=== PATIENT | male | born 1935 | race Caucasian/White ===

== ENCOUNTER 2021-02-16 18:16 | Emergency (ER) | payer MEDICARE, BC ==
[~2021-02-16] VITALS: Ht 172.7 cm; Wt 79.4 kg
[2021-02-16] MEDS ORDERED: POTASSIUM CHL (18:51)
[2021-02-16] MEDS ORDERED: WARF1TAB2 (18:51)
[2021-02-16] MEDS ORDERED: FUROSEMIDE (18:51)
[2021-02-16] MEDS ORDERED: COREG (18:51)
[2021-02-16] MEDS ORDERED: LISINOPRIL (18:51)
[2021-02-16] MEDS ORDERED: SERT50TA14 (18:51)
[2021-02-16] MEDS ORDERED: XARELTO (18:51)
[2021-02-16] MEDS ORDERED: METFORMIN (18:51)
[2021-02-16 19:45] LABS: HEMATOCRIT 36.4 % (36.7-47.1); MEAN CORPUSCULAR HEMOGLOBIN 32.5 uug (23.8-33.4); MEAN CORPUSCULAR VOLUME 94.4 fL (73.0-96.2); PLATELET COUNT (AUTO) 191 K/uL (152-348)
[2021-02-16 19:54] LABS: CARBON DIOXIDE 27 mmol/L (21-32); CHLORIDE 99 mmol/L (98-107); CREATININE 1.1 mg/dL (0.6-1.3); GLUCOSE 115 mg/dL (74-106); POTASSIUM 4.1 mmol/L (3.5-5.1); UREA NITROGEN, BLOOD 14 mg/dL (7-18)
[2021-02-16 19:59] LABS: ALANINE AMINOTRANSFERASE 22 U/L (16-63); ALKALINE PHOSPHATASE 87 U/L (50-136); ASPARTATE AMINOTRANSFERASE 16 U/L (15-37); BILIRUBIN,DIRECT 0.1 mg/dL (0.0-0.2); BILIRUBIN,TOTAL 0.6 mg/dL (0.2-1.0); TOTAL PROTEIN, SERUM 7.3 g/dL (6.4-8.2)
[2021-02-16 20:01] LABS: ACETAMINOPHEN < 2.0 ug/mL (10-30)
--- NOTE | 2021-02-16 22:08 | NUR ---
Dr. Cisneros spoke with poison control
[2021-02-17 01:49] VITALS: BP 137/81
--- NOTE | 2021-02-17 01:49 | NUR ---
Patient discharged to home in stable condition. Written and verbal after care instructions given. Patient verbalizes understanding of instructions. Stressed follow up or return to ER for worsening s/s.
== END 2021-02-17 01:50 | disposition home or self-care (01) ==
LOC: ER 18:21
DX: T45.511A Poisoning by anticoagulants, accidental (unintentional), initial encounter (principal); T44.7X1A Poisoning by beta-adrenoreceptor antagonists, accidental (unintentional), initial encounter; Y92.019 Unspecified place in single-family (private) house as the place of occurrence of the external cause; I48.91 Unspecified atrial fibrillation; Z79.01 Long term (current) use of anticoagulants; Z85.46 Personal history of malignant neoplasm of prostate; Z88.0 Allergy status to penicillin
CPT/HCPCS: 36415; 85025; 85730; 93005; A4663

== ENCOUNTER 2021-06-10 16:46 | Inpatient (IN) | payer MEDICARE, BC ==
[~2021-06-10] VITALS: Ht 170.2 cm; Wt 79.8 kg
[~2021-06-10 16:46] MED LIST: COREG; FUROSEMIDE; LISINOPRIL; METFORMIN; POTASSIUM CHL; SERT50TA14; WARF1TAB2; XARELTO
[2021-06-10 17:20] LABS: HEMATOCRIT 38.6 % (36.7-47.1); MEAN CORPUSCULAR HEMOGLOBIN 31.4 uug (23.8-33.4); MEAN CORPUSCULAR VOLUME 91.3 fL (73.0-96.2); PLATELET COUNT (AUTO) 180 K/uL (152-348)
[2021-06-10 17:41] LABS: ALANINE AMINOTRANSFERASE 21 U/L (16-63); ALKALINE PHOSPHATASE 77 U/L (50-136); ASPARTATE AMINOTRANSFERASE 15 U/L (15-37); BILIRUBIN,DIRECT 0.2 mg/dL (0.0-0.2); BILIRUBIN,TOTAL 1.1 mg/dL (0.2-1.0); CARBON DIOXIDE 25 mmol/L (21-32); CHLORIDE 98 mmol/L (98-107); GLUCOSE 107 mg/dL (74-106); POTASSIUM 4.4 mmol/L (3.5-5.1); TOTAL PROTEIN, SERUM 7.8 g/dL (6.4-8.2); UREA NITROGEN, BLOOD 15 mg/dL (7-18)
[2021-06-10] MEDS ORDERED: IOHEXOL 350 100 ML INFUS..BTL ONE (17:53)
[2021-06-10] MEDS ORDERED: SWABABLE VALVE TRANSFER SET EA MC ONE (17:53)
[2021-06-10] MEDS ORDERED: IV NORMAL SALINE 250 ML IV ONE (17:54)
--- NOTE | 2021-06-10 18:40 | NUR ---
Patient is still in CT scan.
[2021-06-10] MEDS ORDERED: SERT25TA PO (18:49)
[2021-06-10] MEDS ORDERED: SPIR25TA6 PO (18:49)
[2021-06-10] MEDS ORDERED: LISI2.5T14 PO (18:49)
[2021-06-10] MEDS ORDERED: ROSU5TAB PO (18:49)
[2021-06-10] MEDS ORDERED: ACET1TAB23 PO (18:49)
[2021-06-10] MEDS ORDERED: CARV12.52 PO (18:49)
[2021-06-10] MEDS ORDERED: CLOP75TA33 PO (18:49)
[2021-06-10] MEDS ORDERED: LEVO75TA7 PO (18:49)
[2021-06-10] MEDS ORDERED: ASPI81TA31 PO (18:49)
[2021-06-10] MEDS ORDERED: EPLE25TA10 PO (18:49)
--- NOTE | 2021-06-10 18:55 | NUR ---
Patient is resting comfortably on gurney, NAD, denies chest pains@the moment.
--- NOTE | 2021-06-10 19:10 | NUR ---
Pending CT scan results, nursing SBAR was given to CHARLY Cronin. ER registration/admitting staff notified re: plan to admit.
--- NOTE | 2021-06-10 19:12 | NUR ---
Pt awake in bed. Denies chest pain at this time. No SOB. Able to speak in complete sentences.
[2021-06-10] MEDS ORDERED: DILTIAZEM HCL 25 MG IV ONE (20:14)
[2021-06-10] MEDS ORDERED: DILTIAZEM HCL 25 MG IV IV ONE (20:15)
--- NOTE | 2021-06-10 20:23 | NUR ---
Cardizem 10mg IV given. Pt tolerated well. Denies SOB or chest pain at this time.
--- NOTE | 2021-06-10 20:24 | NUR ---
[facility] called for Panel Call. Daniele Ellis division chief.
[2021-06-10] MEDS ORDERED: ASPIRIN 81 MG TAB.CHEW PO ONE (21:00)
--- NOTE | 2021-06-10 21:07 | NUR ---
Called for Tele bed. Room 306, Nurse will be Jaemson PARKS
[2021-06-10] MEDS ORDERED: CARVEDILOL 12.5 MG TABLET PO SCH (21:15)
[2021-06-10] MEDS ORDERED: ACETAMINOPHEN 325 MG TABLET PO PRN (21:15)
[2021-06-10] MEDS ORDERED: MAGNESIUM HYDROXIDE 30 ML LIQUID UDC PO PRN (21:15)
[2021-06-10] MEDS ORDERED: REMEDY ESSENTIAL ZINC PASTE 113 GM TP PRN (21:15)
[2021-06-10] MEDS ORDERED: ONDANSETRON 4 MG/2 ML VIAL IV PRN (21:15)
--- NOTE | 2021-06-10 21:47 | NUR ---
Report given to Jameson PARKS
[2021-06-10 22:00] VITALS: BP 130/73
--- NOTE | 2021-06-10 22:10 | NUR ---
Taken to 3rd floor room 306 in stable condition. Denies chest pain or SOB. Able to make needs known. All extremities WNL. Pt able to follow commands
[2021-06-10] MEDS ORDERED: NITROGLYCERIN 0.4 MG/TAB BOTTLE SL PRN (22:15)
[2021-06-10] MEDS ORDERED: MORPHINE SULFATE 2 MG/1 ML DISP.SYRIN IM PRN (22:15)
[2021-06-10] MEDS: ENOXAPARIN SODIUM 40 MG/0.4 ML DISP.SYRIN SQ SCH (22:36)
--- NOTE | 2021-06-10 22:52 | NUR ---
Admitted patient to tele unit from Er via wheelchair Dx.chest pain r/o ACS.Patient AALox4.Denies chest pain at this time.No s/s of distress noted.On Ra. Iv patent and intact on Right Ac 18 g.Skin intact.Due meds given as ordered. Call light with in reach. Safety measures in place. Will continue to monitor.
[2021-06-11 04:42] VITALS: BP 127/49
[2021-06-11] MEDS: PANTOPRAZOLE SODIUM 40 MG TABLET.DR PO SCH (06:04)
[2021-06-11] MEDS: LEVOTHYROXINE SODIUM 75 MCG TABLET PO SCH (06:04)
[2021-06-11 06:05] LABS: HEMATOCRIT 37.4 % (36.7-47.1); MEAN CORPUSCULAR HEMOGLOBIN 31.4 uug (23.8-33.4); MEAN CORPUSCULAR VOLUME 91.6 fL (73.0-96.2); PLATELET COUNT (AUTO) 156 K/uL (152-348)
[2021-06-11 06:40] LABS: THYROID STIMULATING HORMONE 0.121 mIU/mL (0.358-3.740)
[2021-06-11 06:43] LABS: NEUTROPHILS % (MANUAL) 0 % (42-75)
[2021-06-11 06:45] LABS: CREATININE 1.2 mg/dL (0.6-1.3); MAGNESIUM 2.2 mg/dL (1.8-2.4); PHOSPHOROUS 3.4 mg/dL (2.5-4.9)
[2021-06-11] MEDS: SPIRONOLACTONE 25 MG TABLET PO SCH (08:40)
[2021-06-11] MEDS: SERTRALINE HCL 50 MG TABLET PO SCH (08:40)
[2021-06-11] MEDS: ASPIRIN 81 MG TAB.CHEW PO SCH (08:40)
[2021-06-11] MEDS: CLOPIDOGREL 75 MG TABLET PO SCH (08:42)
[2021-06-11] MEDS: CARVEDILOL 12.5 MG TABLET PO SCH ×2 (08:43→17:20)
[2021-06-11] MEDS: LISINOPRIL 5 MG TABLET PO SCH (08:44)
[2021-06-11] MEDS ORDERED: Medication Not On Formulary EA (Rosuvastatin Calcium (Crestor) 1 TAB) PO SCH (09:00)
[2021-06-11 11:47] VITALS: BP 117/62
[2021-06-11 15:59] VITALS: BP 101/56
--- NOTE | 2021-06-11 19:30 | NUR ---
Received pt resting in bed. AO X 4. On RA saturating at 94%. Bilateral hearing aids. No signs of acute distress. Denies chest pain. IV in R AC intact, saline flushed and heplock. Controlled A fib on tele monitor with 77 bpm. No signs of SOB. Call light within reach. Safety measures initiated.
[2021-06-11] MEDS: ENOXAPARIN SODIUM 40 MG/0.4 ML DISP.SYRIN SQ SCH (20:05)
[2021-06-11 20:07] VITALS: BP 115/53
[2021-06-11] MEDS ORDERED: ATORVASTATIN 10 MG TABLET PO SCH (21:00)
[2021-06-12 00:11] VITALS: BP 133/68
[2021-06-12 04:52] VITALS: BP 139/77
[2021-06-12] MEDS: LEVOTHYROXINE SODIUM 75 MCG TABLET PO SCH (06:18)
[2021-06-12] MEDS: PANTOPRAZOLE SODIUM 40 MG TABLET.DR PO SCH (06:18)
--- NOTE | 2021-06-12 06:35 | NUR ---
Slept throughout the night. No complaints at this time. All needs have been attended and met. Compliant with medication and care. Call lights within reach. Hearing aids placed by bedside. Safety measures maintained. Will endorse to am shift.
[2021-06-12] MEDS: ASPIRIN 81 MG TAB.CHEW PO SCH (09:15)
[2021-06-12] MEDS: CLOPIDOGREL 75 MG TABLET PO SCH (09:16)
[2021-06-12] MEDS: SPIRONOLACTONE 25 MG TABLET PO SCH (09:17)
[2021-06-12] MEDS: LISINOPRIL 5 MG TABLET PO SCH (09:17)
[2021-06-12] MEDS: SERTRALINE HCL 50 MG TABLET PO SCH (09:17)
[2021-06-12] MEDS: CARVEDILOL 12.5 MG TABLET PO SCH (09:17)
[2021-06-12 12:00] VITALS: BP 94/52
--- NOTE | 2021-06-12 13:00 | NUR ---
Discharge instructions given to pt. Follow up with primary doctor and choker setter within 1 week. PT verbalized understanding. IV taken out. Pt is in no acute distress. Pt ambulates with good balance.
== END 2021-06-12 13:30 | disposition home or self-care (01) | DRG 309 ==
LOC: ER 16:49 → MEDSURG3 21:57 → TELE3 22:10
PROVIDERS: ADMIT Family Medicine; ATTEND Family Medicine
DX: I48.20 Chronic atrial fibrillation, unspecified (principal); E87.1 Hypo-osmolality and hyponatremia; E86.1 Hypovolemia; R07.9 Chest pain, unspecified; I25.10 Atherosclerotic heart disease of native coronary artery without angina pectoris; Z88.0 Allergy status to penicillin; R73.9 Hyperglycemia, unspecified; Z85.46 Personal history of malignant neoplasm of prostate; Z95.5 Presence of coronary angioplasty implant and graft; Z95.818 Presence of other cardiac implants and grafts; Z79.82 Long term (current) use of aspirin; R94.6 Abnormal results of thyroid function studies; Z20.822 Contact with and (suspected) exposure to COVID-19; I34.1 Nonrheumatic mitral (valve) prolapse
CPT/HCPCS: 36415; 70030-TC; 71045; 71275; 83735; 84100; 84443; 84484; 85025; 85730; 93005; 93307; A4663; G0378; J1650; J3490; Q9967

== ENCOUNTER 2022-09-18 14:40 | Inpatient (IN) | payer MEDICARE, BC ==
[~2022-09-18] VITALS: Ht 175.3 cm; Wt 80.7 kg
[~2022-09-18 14:40] MED LIST changes: +ASPI81TA31 PO; +CARV12.52 PO; +CLOP75TA33 PO; -COREG; -FUROSEMIDE; +LEVO75TA7 PO; +LISI2.5T14 PO; -LISINOPRIL; -METFORMIN; -POTASSIUM CHL; +ROSU5TAB PO; +SERT25TA PO; -SERT50TA14; +SPIR25TA6 PO; -WARF1TAB2; -XARELTO
[2022-09-18] MEDS ORDERED: CEFTRIAXONE 1 G in IV DEXTROSE 5% 50 ML IV ONE (16:00)
[2022-09-18] MEDS ORDERED: AZITHROMYCIN 250 MG TABLET PO ONE (16:00)
[2022-09-18] MEDS ORDERED: AZITHROMYCIN 250 MG TABLET ONE (16:21)
[2022-09-18] MEDS ORDERED: CEFTRIAXONE /D5W 50ML IVPB **ER PYXIS IV ONE (16:21)
[2022-09-18 16:26] LABS: BASOPHILS % (AUTO) 0.7 % (0.0-2.0); EOSINOPHILS # (AUTO) 0.1 K/uL (0.0-0.7); EOSINOPHILS % (AUTO) 2.5 % (0.0-7.0); LYMPHOCYTES # (AUTO) 0.7 K/uL (0.8-4.8); MEAN CORPUSCULAR HEMOGLOBIN 31.8 uug (23.8-33.4); MEAN CORPUSCULAR HGB CONC 33 g/dL (32.5-36.3); MEAN CORPUSCULAR VOLUME 95.4 fL (73.0-96.2); MONOCYTES # (AUTO) 0.6 K/uL (0.1-1.30); MONOCYTES % (AUTO) 10.6 % (0.0-11.0); NEUTROPHILS # (AUTO) 4.2 K/uL (1.8-8.9); NEUTROPHILS % (AUTO) 73.2 % (38.5-71.5); PLATELET COUNT (AUTO) 190 K/uL (152-348); RED BLOOD CELL COUNT(AUTO) 3.77 MIL/uL (4.06-5.63); RED CELL DISTRIBUTION WIDTH 13.8 % (12.1-16.2); WHITE BLOOD COUNT (AUTO) 5.8 K/uL (3.6-10.2)
[2022-09-18 16:33] LABS: DIFFERENTIAL COMMENT 1
[2022-09-18 16:39] LABS: *BILIRUBIN,URIN NEGATIVE (NEGATIVE); *BLOOD, URINE NEGATIVE (NEGATIVE); *CLARITY,URINE CLEAR (CLEAR); *COLOR,URINE YELLOW (YELLOW); *KETONES,URINE NEGATIVE (NEGATIVE); *PROTEIN,URINE NEGATIVE (NEGATIVE); *UROBILINOGEN,URINE 0.2 E.U./dl (NORMAL); LEUKOCYTE ESTERASE ,URINE NEGATIVE (NEGATIVE); NITRITE, URINE NEGATIVE (NEGATIVE); UGLUCOSE NEGATIVE (NEGATIVE)
[2022-09-18 16:47] LABS: CARBON DIOXIDE 28 mmol/L (21-32); CHLORIDE 99 mmol/L (98-107); GLUCOSE 105 mg/dL (74-106); POTASSIUM 4.4 mmol/L (3.5-5.1); SODIUM SERUM 133 mmol/L (136-145); UREA NITROGEN, BLOOD 16 mg/dL (7-18)
[2022-09-18 16:52] LABS: ALANINE AMINOTRANSFERASE 22 U/L (16-63); ALBUMIN 3.9 g/dL (3.4-5.0); ALKALINE PHOSPHATASE 65 U/L (50-136); ASPARTATE AMINOTRANSFERASE 16 U/L (15-37); BILIRUBIN,DIRECT 0.1 mg/dL (0.0-0.2); BILIRUBIN,TOTAL 0.6 mg/dL (0.2-1.0); NT-PRO BNP 862 pg/mL (0-125); TOTAL PROTEIN, SERUM 7.5 g/dL (6.4-8.2)
[2022-09-18] MEDS ORDERED: NITROGLYCERIN OINT 1 GM PACKET TP ONE ×2 (17:45→18:02)
[2022-09-18] MEDS ORDERED: hydrALAZINE HCL 20 MG/1 ML VIAL IV ONE (17:45)
[2022-09-18] MEDS ORDERED: hydrALAZINE HCL 20 MG/1 ML VIAL ONE (18:02)
[2022-09-18] MEDS ORDERED: TEMAZEPAM 15 MG CAPSULE PO PRN (19:00)
[2022-09-18] MEDS ORDERED: ACETAMINOPHEN 325 MG TABLET PO PRN (19:00)
[2022-09-18] MEDS ORDERED: HYDROCODONE/APAP 5-325MG TABLET PO PRN (19:00)
[2022-09-18] MEDS ORDERED: ONDANSETRON 4 MG/2 ML VIAL IV PRN (19:00)
[2022-09-18] MEDS ORDERED: CARVEDILOL 3.125 MG TABLET PO ONE (21:00)
[2022-09-18 22:30] VITALS: BP 123/77; TEMP 97.9; O2SAT 94
[2022-09-18] MEDS: CARVEDILOL 12.5 MG TABLET PO SCH (22:51)
[2022-09-19 04:48] VITALS: BP 105/66; TEMP 97.7; O2SAT 94
[2022-09-19] MEDS: LEVOTHYROXINE SODIUM 75 MCG TABLET PO SCH (06:03)
[2022-09-19] MEDS: PANTOPRAZOLE SODIUM 40 MG TABLET.DR PO SCH (06:03)
[2022-09-19 06:38] LABS: BASOPHILS % (AUTO) 0.4 % (0.0-2.0); EOSINOPHILS # (AUTO) 0.1 K/uL (0.0-0.7); EOSINOPHILS % (AUTO) 1.8 % (0.0-7.0); HEMATOCRIT 32.8 % (36.7-47.1); HEMOGLOBIN 11.4 g/dL (12.5-16.3); LYMPHOCYTES # (AUTO) 0.7 K/uL (0.8-4.8); LYMPHOCYTES % (AUTO) 13.7 % (20.5-51.5); MEAN CORPUSCULAR HEMOGLOBIN 32.4 uug (23.8-33.4); MEAN CORPUSCULAR HGB CONC 35 g/dL (32.5-36.3); MEAN CORPUSCULAR VOLUME 93.8 fL (73.0-96.2); MONOCYTES # (AUTO) 0.5 K/uL (0.1-1.30); MONOCYTES % (AUTO) 8.9 % (0.0-11.0); NEUTROPHILS % (AUTO) 75.2 % (38.5-71.5); PLATELET COUNT (AUTO) 179 K/uL (152-348); RED CELL DISTRIBUTION WIDTH 13.7 % (12.1-16.2); WHITE BLOOD COUNT (AUTO) 5.4 K/uL (3.6-10.2)
[2022-09-19 06:51] LABS: ALANINE AMINOTRANSFERASE 15 U/L (16-63); ALBUMIN 3.5 g/dL (3.4-5.0); ALKALINE PHOSPHATASE 58 U/L (50-136); ASPARTATE AMINOTRANSFERASE 12 U/L (15-37); BILIRUBIN,TOTAL 0.7 mg/dL (0.2-1.0); CALCIUM 8.4 mg/dL (8.5-10.1); CARBON DIOXIDE 25 mmol/L (21-32); CHLORIDE 98 mmol/L (98-107); CHOLESTEROL 127 mg/dL (<200); GLUCOSE 100 mg/dL (74-106); HDL CHOLESTEROL 58 mg/dL (40-60); MAGNESIUM 1.8 mg/dL (1.8-2.4); PHOSPHOROUS 3.9 mg/dL (2.5-4.9); POTASSIUM 4.1 mmol/L (3.5-5.1); SODIUM SERUM 132 mmol/L (136-145); TOTAL PROTEIN, SERUM 6.8 g/dL (6.4-8.2); TRIGLYCERIDES 43 MG/DL (30-150); UREA NITROGEN, BLOOD 14 mg/dL (7-18)
[2022-09-19 06:54] LABS: DIFFERENTIAL COMMENT 1
[2022-09-19 09:00] VITALS: BP_SYST 115; BP_SYST 116; BP_SYST 119; BP_DIAS 61; BP_DIAS 64; BP_DIAS 70
[2022-09-19] MEDS ORDERED: Medication Not On Formulary EA (Sertraline Hcl (Zoloft) 1 TAB) PO SCH (09:00)
[2022-09-19] MEDS: SERTRALINE HCL 50 MG TABLET PO SCH (09:12)
[2022-09-19] MEDS: CLOPIDOGREL 75 MG TABLET PO SCH (09:12)
[2022-09-19] MEDS: SPIRONOLACTONE 25 MG TABLET PO SCH (09:12)
[2022-09-19] MEDS: ASPIRIN 81 MG TAB.CHEW PO SCH (09:13)
[2022-09-19] MEDS: LISINOPRIL 5 MG TABLET PO SCH (09:15)
[2022-09-19] MEDS: CARVEDILOL 12.5 MG TABLET PO SCH ×2 (09:16→16:45)
[2022-09-19 11:13] VITALS: BP 116/54; TEMP 97.5; O2SAT 95
[2022-09-19 14:59] VITALS: BP 105/56; TEMP 97.5; O2SAT 95
[2022-09-19 20:00] VITALS: BP 94/47; TEMP 97.7; O2SAT 97
[2022-09-19 23:32] VITALS: BP 106/73; TEMP 97.7; O2SAT 94
[2022-09-20 04:00] VITALS: BP 106/59; TEMP 98.5; O2SAT 95
[2022-09-20] MEDS: LEVOTHYROXINE SODIUM 75 MCG TABLET PO SCH (06:15)
[2022-09-20] MEDS: PANTOPRAZOLE SODIUM 40 MG TABLET.DR PO SCH (06:15)
[2022-09-20 06:45] LABS: BASOPHILS % (AUTO) 0.5 % (0.0-2.0); EOSINOPHILS # (AUTO) 0.2 K/uL (0.0-0.7); EOSINOPHILS % (AUTO) 3.5 % (0.0-7.0); HEMATOCRIT 35.5 % (36.7-47.1); HEMOGLOBIN 12.1 g/dL (12.5-16.3); LYMPHOCYTES # (AUTO) 0.9 K/uL (0.8-4.8); LYMPHOCYTES % (AUTO) 16.2 % (20.5-51.5); MEAN CORPUSCULAR HGB CONC 34 g/dL (32.5-36.3); MEAN CORPUSCULAR VOLUME 93.7 fL (73.0-96.2); MONOCYTES # (AUTO) 0.6 K/uL (0.1-1.30); MONOCYTES % (AUTO) 10.4 % (0.0-11.0); NEUTROPHILS # (AUTO) 4.1 K/uL (1.8-8.9); NEUTROPHILS % (AUTO) 69.4 % (38.5-71.5); PLATELET COUNT (AUTO) 205 K/uL (152-348); RED BLOOD CELL COUNT(AUTO) 3.79 MIL/uL (4.06-5.63); RED CELL DISTRIBUTION WIDTH 14.1 % (12.1-16.2); WHITE BLOOD COUNT (AUTO) 5.9 K/uL (3.6-10.2)
[2022-09-20 06:57] LABS: DIFFERENTIAL COMMENT 1
[2022-09-20 07:00] LABS: CALCIUM 8.9 mg/dL (8.5-10.1); CARBON DIOXIDE 25 mmol/L (21-32); CHLORIDE 97 mmol/L (98-107); GLUCOSE 96 mg/dL (74-106); MAGNESIUM 1.9 mg/dL (1.8-2.4); PHOSPHOROUS 3.3 mg/dL (2.5-4.9); POTASSIUM 4.2 mmol/L (3.5-5.1); SODIUM SERUM 132 mmol/L (136-145); UREA NITROGEN, BLOOD 16 mg/dL (7-18)
[2022-09-20 08:00] VITALS: BP 127/66; TEMP 97.9; O2SAT 97
[2022-09-20] MEDS: LISINOPRIL 5 MG TABLET PO SCH (09:09)
[2022-09-20] MEDS: CLOPIDOGREL 75 MG TABLET PO SCH (09:10)
[2022-09-20] MEDS: SPIRONOLACTONE 25 MG TABLET PO SCH (09:10)
[2022-09-20] MEDS: CARVEDILOL 12.5 MG TABLET PO SCH ×2 (09:10→17:10)
[2022-09-20] MEDS: ASPIRIN 81 MG TAB.CHEW PO SCH (09:10)
[2022-09-20] MEDS: SERTRALINE HCL 50 MG TABLET PO SCH (09:12)
[2022-09-20 11:44] VITALS: BP 117/57; TEMP 98.4; O2SAT 95
[2022-09-20 16:27] VITALS: BP 125/72; TEMP 97.4; O2SAT 96
[2022-09-20 20:00] VITALS: BP 142/80; TEMP 97.9; O2SAT 96
[2022-09-21] MEDS: LEVOTHYROXINE SODIUM 75 MCG TABLET PO SCH (07:19)
[2022-09-21] MEDS: PANTOPRAZOLE SODIUM 40 MG TABLET.DR PO SCH (07:19)
[2022-09-21] MEDS: SERTRALINE HCL 50 MG TABLET PO SCH (08:53)
[2022-09-21] MEDS: CLOPIDOGREL 75 MG TABLET PO SCH (08:53)
[2022-09-21] MEDS: LISINOPRIL 5 MG TABLET PO SCH (08:55)
[2022-09-21] MEDS: CARVEDILOL 12.5 MG TABLET PO SCH (08:55)
[2022-09-21] MEDS: ASPIRIN 81 MG TAB.CHEW PO SCH (08:55)
[2022-09-21] MEDS: SPIRONOLACTONE 25 MG TABLET PO SCH (08:56)
[2022-09-21 11:49] VITALS: BP 132/65; TEMP 98; O2SAT 97
== END 2022-09-21 14:10 | disposition home or self-care (01) | DRG 305 ==
LOC: ER 14:40 → TELE3 21:46 → MEDSURG3 09-20 18:25
PROVIDERS: ADMIT Internal Medicine; ATTEND Student in an Organized Health Care Education/Training Program
DX: I16.9 Hypertensive crisis, unspecified (principal); I48.20 Chronic atrial fibrillation, unspecified; R42 Dizziness and giddiness; Z79.01 Long term (current) use of anticoagulants; R53.1 Weakness; E03.9 Hypothyroidism, unspecified; E66.9 Obesity, unspecified; E78.5 Hyperlipidemia, unspecified; Z79.82 Long term (current) use of aspirin; Z85.46 Personal history of malignant neoplasm of prostate; Z87.891 Personal history of nicotine dependence; Z88.0 Allergy status to penicillin; Z95.1 Presence of aortocoronary bypass graft; Z95.5 Presence of coronary angioplasty implant and graft; Z95.818 Presence of other cardiac implants and grafts; I25.10 Atherosclerotic heart disease of native coronary artery without angina pectoris; I11.0 Hypertensive heart disease with heart failure; I50.9 Heart failure, unspecified; Z68.26 Body mass index [BMI] 26.0-26.9, adult; Z79.02 Long term (current) use of antithrombotics/antiplatelets; I34.1 Nonrheumatic mitral (valve) prolapse
CPT/HCPCS: 36415; 70450; 71045; 83605; 83735; 84100; 84443; 84484; 85025; 85730; 87040; 93005; 93307; 93880; G0378; J0360; J0696; Q0144

== ENCOUNTER 2022-11-19 03:24 | Inpatient (IN) | payer MEDICARE, BC ==
[~2022-11-19] VITALS: Ht 182.9 cm; Wt 81.6 kg
[2022-11-19] MEDS ORDERED: METOPROLOL TARTRATE 5 MG/5 ML VIAL IVP ONE ×2 (04:00→04:19)
[2022-11-19 04:08] LABS: BASOPHILS % (AUTO) 0.6 % (0.0-2.0); EOSINOPHILS # (AUTO) 0.2 K/uL (0.0-0.7); EOSINOPHILS % (AUTO) 3.3 % (0.0-7.0); HEMATOCRIT 36.1 % (36.7-47.1); HEMOGLOBIN 12.5 g/dL (12.5-16.3); LYMPHOCYTES # (AUTO) 0.7 K/uL (0.8-4.8); MEAN CORPUSCULAR HEMOGLOBIN 32.5 uug (23.8-33.4); MEAN CORPUSCULAR HGB CONC 35 g/dL (32.5-36.3); MEAN CORPUSCULAR VOLUME 93.8 fL (73.0-96.2); MONOCYTES # (AUTO) 0.6 K/uL (0.1-1.30); MONOCYTES % (AUTO) 10.9 % (0.0-11.0); NEUTROPHILS % (AUTO) 73.2 % (38.5-71.5); PLATELET COUNT (AUTO) 179 K/uL (152-348); RED BLOOD CELL COUNT(AUTO) 3.85 MIL/uL (4.06-5.63); RED CELL DISTRIBUTION WIDTH 14.1 % (12.1-16.2); WHITE BLOOD COUNT (AUTO) 5.5 K/uL (3.6-10.2)
[2022-11-19 04:13] LABS: DIFFERENTIAL COMMENT 1
[2022-11-19 04:22] LABS: CALCIUM 9.4 mg/dL (8.5-10.1); CARBON DIOXIDE 25 mmol/L (21-32); CHLORIDE 96 mmol/L (98-107); CREATININE 1.1 mg/dL (0.6-1.3); GLUCOSE 152 mg/dL (74-106); SODIUM SERUM 131 mmol/L (136-145); UREA NITROGEN, BLOOD 16 mg/dL (7-18)
[2022-11-19] MEDS ORDERED: IV NORMAL SALINE 500 ML BAG IV ONE (04:30)
[2022-11-19 04:35] LABS: ALANINE AMINOTRANSFERASE 20 U/L (16-63); ALBUMIN 3.7 g/dL (3.4-5.0); ALKALINE PHOSPHATASE 60 U/L (50-136); ASPARTATE AMINOTRANSFERASE 12 U/L (15-37); BILIRUBIN,DIRECT 0.2 mg/dL (0.0-0.2); BILIRUBIN,TOTAL 0.4 mg/dL (0.2-1.0); NT-PRO BNP 289 pg/mL (0-125); TOTAL PROTEIN, SERUM 7.3 g/dL (6.4-8.2)
[2022-11-19] MEDS ORDERED: IOHEXOL 350 100 ML INFUS..BTL ONE (04:52)
[2022-11-19] MEDS ORDERED: IV NORMAL SALINE 250 ML IV ONE (04:53)
[2022-11-19] MEDS ORDERED: FUROSEMIDE 40 MG/4 ML VIAL IV ONE (14:00)
[2022-11-19] MEDS ORDERED: NITROGLYCERIN OINT 1 GM PACKET TP ONE ×2 (14:00→15:11)
[2022-11-19] MEDS ORDERED: FUROSEMIDE 20 MG/2 ML VIAL ONE (15:10)
[2022-11-19] MEDS ORDERED: MAGNESIUM HYDROXIDE 30 ML LIQUID UDC PO PRN (17:15)
[2022-11-19] MEDS ORDERED: NITROGLYCERIN 0.4 MG/TAB BOTTLE SL PRN (17:15)
[2022-11-19] MEDS ORDERED: ACETAMINOPHEN 325 MG TABLET PO PRN (17:15)
[2022-11-19] MEDS ORDERED: REMEDY ESSENTIAL ZINC PASTE 113 GM TP PRN (17:15)
[2022-11-19] MEDS ORDERED: ONDANSETRON 4 MG/2 ML VIAL IV PRN (17:15)
[2022-11-19 18:00] VITALS: BP 130/60; TEMP 97.5; O2SAT 96
[2022-11-19] MEDS: ATORVASTATIN 10 MG TABLET PO SCH (20:50)
[2022-11-19 20:52] VITALS: BP 113/72; TEMP 97.8; O2SAT 100
[2022-11-20 06:14] VITALS: BP 126/68; TEMP 99; O2SAT 99
[2022-11-20 06:31] LABS: BASOPHILS % (AUTO) 0.3 % (0.0-2.0); EOSINOPHILS # (AUTO) 0.2 K/uL (0.0-0.7); EOSINOPHILS % (AUTO) 3.8 % (0.0-7.0); HEMATOCRIT 36.5 % (36.7-47.1); HEMOGLOBIN 12.7 g/dL (12.5-16.3); LYMPHOCYTES # (AUTO) 0.9 K/uL (0.8-4.8); LYMPHOCYTES % (AUTO) 15.6 % (20.5-51.5); MEAN CORPUSCULAR HEMOGLOBIN 32.7 uug (23.8-33.4); MEAN CORPUSCULAR HGB CONC 35 g/dL (32.5-36.3); MEAN CORPUSCULAR VOLUME 93.8 fL (73.0-96.2); MONOCYTES # (AUTO) 0.6 K/uL (0.1-1.30); MONOCYTES % (AUTO) 10.9 % (0.0-11.0); NEUTROPHILS # (AUTO) 3.9 K/uL (1.8-8.9); NEUTROPHILS % (AUTO) 69.4 % (38.5-71.5); PLATELET COUNT (AUTO) 182 K/uL (152-348); RED BLOOD CELL COUNT(AUTO) 3.89 MIL/uL (4.06-5.63); RED CELL DISTRIBUTION WIDTH 14.2 % (12.1-16.2); WHITE BLOOD COUNT (AUTO) 5.7 K/uL (3.6-10.2)
[2022-11-20 06:40] LABS: DIFFERENTIAL COMMENT 1
[2022-11-20 06:47] LABS: CALCIUM 9.5 mg/dL (8.5-10.1); CARBON DIOXIDE 26 mmol/L (21-32); CHLORIDE 102 mmol/L (98-107); CREATININE 1.3 mg/dL (0.6-1.3); GLUCOSE 102 mg/dL (74-106); PHOSPHOROUS 3.9 mg/dL (2.5-4.9); UREA NITROGEN, BLOOD 16 mg/dL (7-18)
[2022-11-20 07:31] LABS: SODIUM SERUM 135 mmol/L (136-145)
[2022-11-20] MEDS: ASPIRIN 81 MG TAB.CHEW PO SCH (08:26)
[2022-11-20] MEDS: CLOPIDOGREL 75 MG TABLET PO SCH (08:26)
[2022-11-20] MEDS: SERTRALINE HCL 50 MG TABLET PO SCH (08:27)
[2022-11-20] MEDS: SPIRONOLACTONE 25 MG TABLET PO SCH (08:27)
[2022-11-20] MEDS: LISINOPRIL 5 MG TABLET PO SCH (08:29)
[2022-11-20] MEDS ORDERED: Medication Not On Formulary EA (Rosuvastatin Calcium (Crestor) 1 TAB) PO SCH (09:00)
[2022-11-20] MEDS ORDERED: CARVEDILOL 12.5 MG TABLET PO SCH (09:00)
[2022-11-20] MEDS ORDERED: Medication Not On Formulary EA (Sertraline Hcl (Zoloft) 1 TAB) PO SCH (09:00)
[2022-11-20] MEDS ORDERED: LEVOTHYROXINE SODIUM 75 MCG TABLET PO SCH (09:00)
[2022-11-20] MEDS ORDERED: FUROSEMIDE 40 MG/4 ML VIAL IV ONE (09:30)
[2022-11-20 17:51] VITALS: BP 128/62; TEMP 98.2; O2SAT 100
[2022-11-20 20:00] VITALS: BP 109/60; TEMP 98.3; O2SAT 100
[2022-11-20] MEDS: ATORVASTATIN 10 MG TABLET PO SCH (21:14)
[2022-11-21] VITALS: BP 115/79; TEMP 98; O2SAT 97
[2022-11-21] MEDS: BENZONATATE 100 MG CAPSULE PO SCH ×3 (01:08→13:35)
[2022-11-21 04:00] VITALS: BP 113/59; TEMP 97.9; O2SAT 98
[2022-11-21 07:21] LABS: BASOPHILS % (AUTO) 0.6 % (0.0-2.0); EOSINOPHILS # (AUTO) 0.1 K/uL (0.0-0.7); EOSINOPHILS % (AUTO) 1.8 % (0.0-7.0); HEMATOCRIT 38.9 % (36.7-47.1); HEMOGLOBIN 13.4 g/dL (12.5-16.3); LYMPHOCYTES # (AUTO) 0.5 K/uL (0.8-4.8); LYMPHOCYTES % (AUTO) 8.6 % (20.5-51.5); MEAN CORPUSCULAR HEMOGLOBIN 32.6 uug (23.8-33.4); MEAN CORPUSCULAR HGB CONC 35 g/dL (32.5-36.3); MEAN CORPUSCULAR VOLUME 94.2 fL (73.0-96.2); MONOCYTES # (AUTO) 0.8 K/uL (0.1-1.30); MONOCYTES % (AUTO) 12.4 % (0.0-11.0); NEUTROPHILS # (AUTO) 4.9 K/uL (1.8-8.9); NEUTROPHILS % (AUTO) 76.6 % (38.5-71.5); PLATELET COUNT (AUTO) 176 K/uL (152-348); RED BLOOD CELL COUNT(AUTO) 4.13 MIL/uL (4.06-5.63); RED CELL DISTRIBUTION WIDTH 14.1 % (12.1-16.2); WHITE BLOOD COUNT (AUTO) 6.3 K/uL (3.6-10.2)
[2022-11-21 07:24] LABS: DIFFERENTIAL COMMENT 1
[2022-11-21 07:50] LABS: CALCIUM 9.5 mg/dL (8.5-10.1); CARBON DIOXIDE 27 mmol/L (21-32); CHLORIDE 97 mmol/L (98-107); CREATININE 1.3 mg/dL (0.6-1.3); GLUCOSE 109 mg/dL (74-106); POTASSIUM 3.8 mmol/L (3.5-5.1); SODIUM SERUM 132 mmol/L (136-145); UREA NITROGEN, BLOOD 22 mg/dL (7-18)
[2022-11-21] MEDS: ASPIRIN 81 MG TAB.CHEW PO SCH (08:27)
[2022-11-21] MEDS: SPIRONOLACTONE 25 MG TABLET PO SCH (08:27)
[2022-11-21] MEDS: LISINOPRIL 5 MG TABLET PO SCH (08:27)
[2022-11-21] MEDS: CLOPIDOGREL 75 MG TABLET PO SCH (08:27)
[2022-11-21] MEDS: SERTRALINE HCL 50 MG TABLET PO SCH (08:28)
[2022-11-21] MEDS ORDERED: METOPROLOL TARTRATE 50 MG TABLET PO SCH (09:00)
[2022-11-21 11:33] VITALS: BP 135/73; TEMP 98.5; O2SAT 96
[2022-11-21] MEDS ORDERED: METO50TA16 PO (12:33)
[2022-11-21 14:43] VITALS: BP 100/56; TEMP 98; O2SAT 95
== END 2022-11-21 16:30 | disposition home or self-care (01) | DRG 291 ==
LOC: ER 03:27 → TELE3 17:05
PROVIDERS: ADMIT Internal Medicine; ATTEND Nurse Practitioner Family
DX: I11.0 Hypertensive heart disease with heart failure (principal); I50.33 Acute on chronic diastolic (congestive) heart failure; I48.20 Chronic atrial fibrillation, unspecified; N17.9 Acute kidney failure, unspecified; I48.91 Unspecified atrial fibrillation; E78.5 Hyperlipidemia, unspecified; E03.9 Hypothyroidism, unspecified; Z79.82 Long term (current) use of aspirin; Z85.46 Personal history of malignant neoplasm of prostate; Z88.0 Allergy status to penicillin; Z79.899 Other long term (current) drug therapy; F32.9 Major depressive disorder, single episode, unspecified; K74.60 Unspecified cirrhosis of liver; R53.1 Weakness; I25.119 Atherosclerotic heart disease of native coronary artery with unspecified angina pectoris; Z95.818 Presence of other cardiac implants and grafts
CPT/HCPCS: 36415; 71045; 71275; 83735; 84100; 84484; 85025; 93005; 93307; G0378; J1940; J3490; Q9967

== ENCOUNTER 2022-11-26 09:25 | Inpatient (IN) | payer MEDICARE, BC ==
[~2022-11-26] VITALS: Ht 172.7 cm; Wt 77.6 kg
[~2022-11-26 09:25] MED LIST changes: -CARV12.52 PO; +METO50TA16 PO
[2022-11-26] MEDS ORDERED: ONDANSETRON 4 MG/2 ML VIAL IV ONE (10:00)
[2022-11-26 10:38] LABS: EOSINOPHILS # (AUTO) 0.1 K/uL (0.0-0.7); EOSINOPHILS % (AUTO) 2.3 % (0.0-7.0); HEMATOCRIT 35.7 % (36.7-47.1); HEMOGLOBIN 12.2 g/dL (12.5-16.3); LYMPHOCYTES # (AUTO) 0.3 K/uL (0.8-4.8); LYMPHOCYTES % (AUTO) 6.2 % (20.5-51.5); MEAN CORPUSCULAR HGB CONC 34 g/dL (32.5-36.3); MEAN CORPUSCULAR VOLUME 93.2 fL (73.0-96.2); MONOCYTES # (AUTO) 0.1 K/uL (0.1-1.30); MONOCYTES % (AUTO) 2.6 % (0.0-11.0); NEUTROPHILS # (AUTO) 4.1 K/uL (1.8-8.9); NEUTROPHILS % (AUTO) 87.9 % (38.5-71.5); PLATELET COUNT (AUTO) 181 K/uL (152-348); RED BLOOD CELL COUNT(AUTO) 3.83 MIL/uL (4.06-5.63); RED CELL DISTRIBUTION WIDTH 13.7 % (12.1-16.2); WHITE BLOOD COUNT (AUTO) 4.6 K/uL (3.6-10.2)
[2022-11-26] MEDS ORDERED: ONDANSETRON 4 MG/2 ML VIAL ONE (10:45)
[2022-11-26 10:46] LABS: DIFFERENTIAL COMMENT 1
[2022-11-26 10:54] LABS: ACETAMINOPHEN < 2.0 ug/mL (10-30)
[2022-11-26 11:02] LABS: THYROID STIMULATING HORMONE 8.906 mIU/mL (0.358-3.740)
[2022-11-26 11:03] LABS: ALBUMIN 3.5 g/dL (3.4-5.0); BILIRUBIN,DIRECT 0.2 mg/dL (0.0-0.2); BILIRUBIN,TOTAL 0.6 mg/dL (0.2-1.0); CALCIUM 9.1 mg/dL (8.5-10.1); CREATININE 0.8 mg/dL (0.6-1.3); POTASSIUM 4.4 mmol/L (3.5-5.1); TOTAL PROTEIN, SERUM 6.9 g/dL (6.4-8.2)
[2022-11-26 11:06] LABS: ETHANOL < 3 MG/DL (0-10); NT-PRO BNP 1086 pg/mL (0-125)
[2022-11-26 12:24] LABS: CALCIUM 8.8 mg/dL (8.5-10.1); CREATININE 0.8 mg/dL (0.6-1.3); POTASSIUM 4.7 mmol/L (3.5-5.1)
[2022-11-26 13:03] LABS: *BILIRUBIN,URIN NEGATIVE (NEGATIVE); *BLOOD, URINE NEGATIVE (NEGATIVE); *CLARITY,URINE CLEAR (CLEAR); *COLOR,URINE YELLOW (YELLOW); *KETONES,URINE NEGATIVE (NEGATIVE); *PROTEIN,URINE 2+ (NEGATIVE); *SODIUM RNDM,URINE 38 mmol/L (40-220); *UROBILINOGEN,URINE 0.2 E.U./dl (NORMAL); LEUKOCYTE ESTERASE ,URINE NEGATIVE (NEGATIVE); NITRITE, URINE NEGATIVE (NEGATIVE); PH,URINE 6.5 (5.0-8.0); UGLUCOSE NEGATIVE (NEGATIVE)
[2022-11-26 13:13] LABS: BACTERIA,URINE FEW /HPF (NONE SEEN); MUCUS,URINE FEW /LPF (0-FEW); WBC,URINE 0-3 /HPF (0-3)
[2022-11-26 13:14] LABS: SQUAMOUS EPITHELIAL CELL,UR FEW /HPF (NONE SEEN)
[2022-11-26] MEDS ORDERED: REMEDY ESSENTIAL ZINC PASTE 113 GM TP PRN (16:00)
[2022-11-26] MEDS ORDERED: ONDANSETRON 4 MG/2 ML VIAL IV PRN (16:00)
[2022-11-26] MEDS ORDERED: ACETAMINOPHEN 325 MG TABLET PO PRN (16:00)
[2022-11-26] MEDS ORDERED: MAGNESIUM HYDROXIDE 30 ML LIQUID UDC PO PRN (16:00)
[2022-11-26 17:00] VITALS: BP 160/94; TEMP 98; O2SAT 97
[2022-11-26 17:31] VITALS: BP 160/94; TEMP 98; O2SAT 97
[2022-11-26] MEDS ORDERED: IV NS 1000 ML 1,000 ML IV ONE (17:45)
[2022-11-26] MEDS: ENOXAPARIN SODIUM 40 MG/0.4 ML DISP.SYRIN SQ SCH (18:03)
[2022-11-26 20:36] VITALS: BP 126/64; TEMP 97.6; O2SAT 97
[2022-11-27 04:45] VITALS: BP 103/52; TEMP 97.6; O2SAT 97
[2022-11-27] MEDS: PANTOPRAZOLE SODIUM 40 MG TABLET.DR PO SCH (06:29)
[2022-11-27] MEDS ORDERED: METF-494 PO (07:22)
[2022-11-27] MEDS ORDERED: Medication Not On Formulary EA (Sertraline Hcl (Zoloft) 1 TAB) PO SCH (09:00)
[2022-11-27] MEDS ORDERED: Medication Not On Formulary EA (Rosuvastatin Calcium (Crestor) 1 TAB) PO SCH (09:00)
[2022-11-27 09:08] LABS: BASOPHILS % (AUTO) 0.4 % (0.0-2.0); EOSINOPHILS # (AUTO) 0.1 K/uL (0.0-0.7); EOSINOPHILS % (AUTO) 1.5 % (0.0-7.0); HEMATOCRIT 33.8 % (36.7-47.1); HEMOGLOBIN 11.9 g/dL (12.5-16.3); LYMPHOCYTES # (AUTO) 0.6 K/uL (0.8-4.8); LYMPHOCYTES % (AUTO) 15.8 % (20.5-51.5); MEAN CORPUSCULAR HEMOGLOBIN 32.2 uug (23.8-33.4); MEAN CORPUSCULAR HGB CONC 35 g/dL (32.5-36.3); MEAN CORPUSCULAR VOLUME 91.5 fL (73.0-96.2); MONOCYTES # (AUTO) 0.5 K/uL (0.1-1.30); MONOCYTES % (AUTO) 12.6 % (0.0-11.0); NEUTROPHILS # (AUTO) 2.8 K/uL (1.8-8.9); NEUTROPHILS % (AUTO) 69.7 % (38.5-71.5); PLATELET COUNT (AUTO) 165 K/uL (152-348); RED BLOOD CELL COUNT(AUTO) 3.69 MIL/uL (4.06-5.63); RED CELL DISTRIBUTION WIDTH 13.3 % (12.1-16.2)
[2022-11-27 09:15] LABS: DIFFERENTIAL COMMENT 1
[2022-11-27] MEDS: LEVOTHYROXINE SODIUM 75 MCG TABLET PO SCH (09:36)
[2022-11-27] MEDS: ASPIRIN 81 MG TAB.CHEW PO SCH (09:36)
[2022-11-27] MEDS: CLOPIDOGREL 75 MG TABLET PO SCH (09:36)
[2022-11-27] MEDS: ENOXAPARIN SODIUM 40 MG/0.4 ML DISP.SYRIN SQ SCH (09:36)
[2022-11-27] MEDS: METOPROLOL TARTRATE 50 MG TABLET PO SCH ×2 (09:37→17:39)
[2022-11-27 09:57] LABS: CALCIUM 8.9 mg/dL (8.5-10.1); CARBON DIOXIDE 25 mmol/L (21-32); CHLORIDE 95 mmol/L (98-107); CREATININE 0.8 mg/dL (0.6-1.3); GLUCOSE 85 mg/dL (74-106); PHOSPHOROUS 2.9 mg/dL (2.5-4.9); POTASSIUM 4.2 mmol/L (3.5-5.1); SODIUM SERUM 126 mmol/L (136-145); UREA NITROGEN, BLOOD 11 mg/dL (7-18)
[2022-11-27 10:28] LABS: IRON, SERUM 88 ug/dL (50-175)
[2022-11-27 10:38] LABS: FERRITIN 188 ng/mL (26-388)
[2022-11-27 11:11] VITALS: BP 135/69; TEMP 97.8; O2SAT 98
[2022-11-27 16:08] VITALS: BP 135/77; TEMP 98; O2SAT 99
[2022-11-27] MEDS: ATORVASTATIN 10 MG TABLET PO SCH (21:14)
[2022-11-27 21:27] VITALS: BP 123/67; TEMP 97.8; O2SAT 100
[2022-11-28 05:41] VITALS: BP 153/105; TEMP 98.2; O2SAT 99
[2022-11-28] MEDS: PANTOPRAZOLE SODIUM 40 MG TABLET.DR PO SCH (06:14)
[2022-11-28 06:45] LABS: BASOPHILS % (AUTO) 0.7 % (0.0-2.0); EOSINOPHILS # (AUTO) 0.1 K/uL (0.0-0.7); HEMATOCRIT 35.2 % (36.7-47.1); HEMOGLOBIN 12.4 g/dL (12.5-16.3); LYMPHOCYTES # (AUTO) 0.7 K/uL (0.8-4.8); LYMPHOCYTES % (AUTO) 16.8 % (20.5-51.5); MEAN CORPUSCULAR HEMOGLOBIN 32.6 uug (23.8-33.4); MEAN CORPUSCULAR HGB CONC 35 g/dL (32.5-36.3); MEAN CORPUSCULAR VOLUME 92.5 fL (73.0-96.2); MONOCYTES # (AUTO) 0.4 K/uL (0.1-1.30); MONOCYTES % (AUTO) 10.6 % (0.0-11.0); NEUTROPHILS % (AUTO) 69.9 % (38.5-71.5); PLATELET COUNT (AUTO) 178 K/uL (152-348); RED CELL DISTRIBUTION WIDTH 13.7 % (12.1-16.2); WHITE BLOOD COUNT (AUTO) 4.3 K/uL (3.6-10.2)
[2022-11-28 06:58] LABS: DIFFERENTIAL COMMENT 1
[2022-11-28 07:20] LABS: ALANINE AMINOTRANSFERASE 26 U/L (16-63); ALBUMIN 3.6 g/dL (3.4-5.0); ALKALINE PHOSPHATASE 64 U/L (50-136); ASPARTATE AMINOTRANSFERASE 22 U/L (15-37); BILIRUBIN,TOTAL 0.7 mg/dL (0.2-1.0); CALCIUM 8.8 mg/dL (8.5-10.1); CARBON DIOXIDE 26 mmol/L (21-32); CHLORIDE 95 mmol/L (98-107); CREATININE 0.9 mg/dL (0.6-1.3); GLUCOSE 85 mg/dL (74-106); MAGNESIUM 1.8 mg/dL (1.8-2.4); POTASSIUM 4.3 mmol/L (3.5-5.1); SODIUM SERUM 129 mmol/L (136-145)
[2022-11-28 08:41] LABS: UREA NITROGEN, BLOOD 12 mg/dL (7-18)
[2022-11-28] MEDS: LEVOTHYROXINE SODIUM 75 MCG TABLET PO SCH (09:04)
[2022-11-28] MEDS: ASPIRIN 81 MG TAB.CHEW PO SCH (09:04)
[2022-11-28] MEDS: SERTRALINE HCL 50 MG TABLET PO SCH (09:05)
[2022-11-28] MEDS: METOPROLOL TARTRATE 50 MG TABLET PO SCH ×2 (09:07→17:09)
[2022-11-28] MEDS: ENOXAPARIN SODIUM 40 MG/0.4 ML DISP.SYRIN SQ SCH (09:08)
[2022-11-28] MEDS: CLOPIDOGREL 75 MG TABLET PO SCH (09:16)
[2022-11-28 11:37] VITALS: BP 156/88; TEMP 98; O2SAT 99
[2022-11-28 16:00] VITALS: BP 149/75; TEMP 98.2; O2SAT 97
[2022-11-28] MEDS: ATORVASTATIN 10 MG TABLET PO SCH (20:47)
[2022-11-28 21:36] VITALS: BP 126/57; TEMP 98; O2SAT 100
[2022-11-29 05:49] VITALS: BP 155/82; TEMP 98; O2SAT 100
[2022-11-29] MEDS: PANTOPRAZOLE SODIUM 40 MG TABLET.DR PO SCH (06:27)
[2022-11-29 07:37] LABS: BASOPHILS % (AUTO) 0.7 % (0.0-2.0); EOSINOPHILS # (AUTO) 0.1 K/uL (0.0-0.7); EOSINOPHILS % (AUTO) 2.6 % (0.0-7.0); HEMATOCRIT 35.4 % (36.7-47.1); HEMOGLOBIN 12.3 g/dL (12.5-16.3); LYMPHOCYTES # (AUTO) 0.8 K/uL (0.8-4.8); LYMPHOCYTES % (AUTO) 16.9 % (20.5-51.5); MEAN CORPUSCULAR HEMOGLOBIN 32.1 uug (23.8-33.4); MEAN CORPUSCULAR HGB CONC 35 g/dL (32.5-36.3); MEAN CORPUSCULAR VOLUME 92.4 fL (73.0-96.2); MONOCYTES # (AUTO) 0.5 K/uL (0.1-1.30); MONOCYTES % (AUTO) 10.4 % (0.0-11.0); NEUTROPHILS # (AUTO) 3.2 K/uL (1.8-8.9); NEUTROPHILS % (AUTO) 69.4 % (38.5-71.5); PLATELET COUNT (AUTO) 204 K/uL (152-348); RED BLOOD CELL COUNT(AUTO) 3.83 MIL/uL (4.06-5.63); RED CELL DISTRIBUTION WIDTH 13.8 % (12.1-16.2); WHITE BLOOD COUNT (AUTO) 4.7 K/uL (3.6-10.2)
[2022-11-29 08:05] LABS: CALCIUM 9.2 mg/dL (8.5-10.1); CARBON DIOXIDE 27 mmol/L (21-32); CHLORIDE 94 mmol/L (98-107); CREATININE 0.9 mg/dL (0.6-1.3); GLUCOSE 85 mg/dL (74-106); MAGNESIUM 1.9 mg/dL (1.8-2.4); PHOSPHOROUS 2.7 mg/dL (2.5-4.9); POTASSIUM 4.3 mmol/L (3.5-5.1); SODIUM SERUM 128 mmol/L (136-145); UREA NITROGEN, BLOOD 11 mg/dL (7-18)
[2022-11-29 08:24] LABS: DIFFERENTIAL COMMENT 1
[2022-11-29] MEDS: ENOXAPARIN SODIUM 40 MG/0.4 ML DISP.SYRIN SQ SCH (09:03)
[2022-11-29] MEDS: ASPIRIN 81 MG TAB.CHEW PO SCH (09:03)
[2022-11-29] MEDS: CLOPIDOGREL 75 MG TABLET PO SCH (09:04)
[2022-11-29] MEDS: LEVOTHYROXINE SODIUM 75 MCG TABLET PO SCH (09:10)
[2022-11-29] MEDS: METOPROLOL TARTRATE 50 MG TABLET PO SCH ×2 (09:10→16:09)
[2022-11-29] MEDS: SERTRALINE HCL 50 MG TABLET PO SCH (09:11)
[2022-11-29] MEDS: SODIUM CHLORIDE 1,000 MG TABLET PO SCH ×2 (09:23→16:09)
[2022-11-29 11:13] VITALS: BP 116/68; TEMP 98; O2SAT 98
[2022-11-29 15:57] VITALS: BP 94/61; TEMP 98.3; O2SAT 97
[2022-11-29 20:20] VITALS: BP 131/66; TEMP 97.6; O2SAT 97
[2022-11-29] MEDS: ATORVASTATIN 10 MG TABLET PO SCH (20:58)
[2022-11-30 04:20] VITALS: BP_SYST 104; BP_SYST 95; BP_DIAS 45; BP_DIAS 62; TEMP 100; TEMP 97.9; O2SAT 96; O2SAT 98
[2022-11-30] MEDS: PANTOPRAZOLE SODIUM 40 MG TABLET.DR PO SCH (06:11)
[2022-11-30 06:48] LABS: BASOPHILS % (AUTO) 0.2 % (0.0-2.0); EOSINOPHILS % (AUTO) 0.1 % (0.0-7.0); HEMATOCRIT 33.2 % (36.7-47.1); HEMOGLOBIN 11.5 g/dL (12.5-16.3); LYMPHOCYTES # (AUTO) 0.2 K/uL (0.8-4.8); LYMPHOCYTES % (AUTO) 1.9 % (20.5-51.5); MEAN CORPUSCULAR HEMOGLOBIN 32.2 uug (23.8-33.4); MEAN CORPUSCULAR HGB CONC 35 g/dL (32.5-36.3); MONOCYTES # (AUTO) 0.6 K/uL (0.1-1.30); MONOCYTES % (AUTO) 4.5 % (0.0-11.0); NEUTROPHILS # (AUTO) 12.3 K/uL (1.8-8.9); NEUTROPHILS % (AUTO) 93.3 % (38.5-71.5); PLATELET COUNT (AUTO) 212 K/uL (152-348); RED BLOOD CELL COUNT(AUTO) 3.57 MIL/uL (4.06-5.63); RED CELL DISTRIBUTION WIDTH 13.8 % (12.1-16.2); WHITE BLOOD COUNT (AUTO) 13.2 K/uL (3.6-10.2)
[2022-11-30 07:04] LABS: DIFFERENTIAL COMMENT 1
[2022-11-30 08:00] VITALS: BP 79/41; TEMP 98.3; O2SAT 98
[2022-11-30 08:00] LABS: CALCIUM 8.8 mg/dL (8.5-10.1); CARBON DIOXIDE 22 mmol/L (21-32); CHLORIDE 93 mmol/L (98-107); CREATININE 1.1 mg/dL (0.6-1.3); GLUCOSE 97 mg/dL (74-106); MAGNESIUM 1.6 mg/dL (1.8-2.4); POTASSIUM 3.6 mmol/L (3.5-5.1); SODIUM SERUM 126 mmol/L (136-145); UREA NITROGEN, BLOOD 13 mg/dL (7-18)
[2022-11-30] MEDS ORDERED: IV NS 1000 ML 1,000 ML IV ONE (08:45)
[2022-11-30] MEDS: METOPROLOL TARTRATE 50 MG TABLET PO SCH ×2 (09:00→15:59)
[2022-11-30] MEDS: LEVOTHYROXINE SODIUM 75 MCG TABLET PO SCH (09:16)
[2022-11-30] MEDS: SERTRALINE HCL 50 MG TABLET PO SCH (09:16)
[2022-11-30] MEDS: SODIUM CHLORIDE 1,000 MG TABLET PO SCH ×2 (09:16→15:58)
[2022-11-30] MEDS: ASPIRIN 81 MG TAB.CHEW PO SCH (09:16)
[2022-11-30] MEDS: CLOPIDOGREL 75 MG TABLET PO SCH (09:16)
[2022-11-30] MEDS: ENOXAPARIN SODIUM 40 MG/0.4 ML DISP.SYRIN SQ SCH (09:17)
[2022-11-30] MEDS ORDERED: MAGNESIUM OXIDE 400 MG TABLET PO ONE (09:30)
[2022-11-30] MEDS ORDERED: SODI100010 PO (12:20)
[2022-11-30 13:00] VITALS: BP 102/64; TEMP 98.2
[2022-11-30 15:24] VITALS: TEMP 98.4
[2022-11-30] MEDS ORDERED: NEUTRA PHOS PACKET PO ONE (15:30)
[2022-11-30] MEDS: ATORVASTATIN 10 MG TABLET PO SCH (20:39)
[2022-11-30 22:08] VITALS: BP 129/74; TEMP 98; O2SAT 99
[2022-12-01 05:04] VITALS: BP 156/83; TEMP 97.8; O2SAT 100
[2022-12-01] MEDS: PANTOPRAZOLE SODIUM 40 MG TABLET.DR PO SCH (06:13)
[2022-12-01 07:02] LABS: CALCIUM 8.6 mg/dL (8.5-10.1); CARBON DIOXIDE 27 mmol/L (21-32); CHLORIDE 92 mmol/L (98-107); CREATININE 1.1 mg/dL (0.6-1.3); GLUCOSE 92 mg/dL (74-106); PHOSPHOROUS 2.7 mg/dL (2.5-4.9); POTASSIUM 4.2 mmol/L (3.5-5.1); SODIUM SERUM 127 mmol/L (136-145); UREA NITROGEN, BLOOD 9 mg/dL (7-18)
[2022-12-01 08:00] VITALS: BP 142/76; TEMP 98.2; O2SAT 96
[2022-12-01] MEDS: ASPIRIN 81 MG TAB.CHEW PO SCH (08:30)
[2022-12-01] MEDS: LEVOTHYROXINE SODIUM 75 MCG TABLET PO SCH (08:31)
[2022-12-01] MEDS: SODIUM CHLORIDE 1,000 MG TABLET PO SCH ×2 (08:31→16:39)
[2022-12-01] MEDS: CLOPIDOGREL 75 MG TABLET PO SCH (08:31)
[2022-12-01] MEDS: ENOXAPARIN SODIUM 40 MG/0.4 ML DISP.SYRIN SQ SCH (08:34)
[2022-12-01] MEDS: METOPROLOL TARTRATE 50 MG TABLET PO SCH ×2 (08:35→16:39)
[2022-12-01 11:48] VITALS: TEMP 97.6
[2022-12-01 12:01] LABS: BASOPHILS % (AUTO) 0.2 % (0.0-2.0); EOSINOPHILS % (AUTO) 0.1 % (0.0-7.0); HEMATOCRIT 31.6 % (36.7-47.1); HEMOGLOBIN 10.9 g/dL (12.5-16.3); LYMPHOCYTES # (AUTO) 0.3 K/uL (0.8-4.8); LYMPHOCYTES % (AUTO) 4.1 % (20.5-51.5); MEAN CORPUSCULAR HGB CONC 35 g/dL (32.5-36.3); MONOCYTES # (AUTO) 0.6 K/uL (0.1-1.30); MONOCYTES % (AUTO) 9.5 % (0.0-11.0); NEUTROPHILS # (AUTO) 5.6 K/uL (1.8-8.9); NEUTROPHILS % (AUTO) 86.1 % (38.5-71.5); PLATELET COUNT (AUTO) 169 K/uL (152-348); RED CELL DISTRIBUTION WIDTH 13.9 % (12.1-16.2); WHITE BLOOD COUNT (AUTO) 6.5 K/uL (3.6-10.2)
[2022-12-01 12:04] LABS: DIFFERENTIAL COMMENT 1
[2022-12-01 12:19] LABS: MAGNESIUM 1.9 mg/dL (1.8-2.4); PHOSPHOROUS 2.7 mg/dL (2.5-4.9)
[2022-12-01 13:53] LABS: *BILIRUBIN,URIN NEGATIVE (NEGATIVE); *BLOOD, URINE NEGATIVE (NEGATIVE); *CLARITY,URINE CLEAR (CLEAR); *COLOR,URINE YELLOW (YELLOW); *KETONES,URINE 1+ (NEGATIVE); *PROTEIN,URINE NEGATIVE (NEGATIVE); LEUKOCYTE ESTERASE ,URINE NEGATIVE (NEGATIVE); NITRITE, URINE NEGATIVE (NEGATIVE); UGLUCOSE NEGATIVE (NEGATIVE)
[2022-12-01 15:22] LABS: BACTERIA,URINE FEW /HPF (NONE SEEN); RBC,URINE 0-3 /HPF (0-3); SQUAMOUS EPITHELIAL CELL,UR FEW /HPF (NONE SEEN); WBC,URINE NONE SEEN /HPF (0-3)
[2022-12-01 15:49] VITALS: TEMP 96.7
[2022-12-01 16:39] VITALS: BP 107/53
[2022-12-01] MEDS: ATORVASTATIN 10 MG TABLET PO SCH (20:40)
[2022-12-02] MEDS ORDERED: LEVOTHYROXINE SODIUM 88 MCG TABLET PO SCH (07:00)
== END 2022-12-01 20:55 | disposition home health service (06) | DRG 644 ==
LOC: ER 09:28 → TELE-TD3 15:38 → MEDSURG3 16:05
PROVIDERS: ADMIT Nurse Practitioner Family; ATTEND Nurse Practitioner Family
DX: E22.2 Syndrome of inappropriate secretion of antidiuretic hormone (principal); J98.11 Atelectasis; I48.91 Unspecified atrial fibrillation; E03.9 Hypothyroidism, unspecified; I11.0 Hypertensive heart disease with heart failure; I50.9 Heart failure, unspecified; T43.225A Adverse effect of selective serotonin reuptake inhibitors, initial encounter; Y92.89 Other specified places as the place of occurrence of the external cause; D64.9 Anemia, unspecified; I70.0 Atherosclerosis of aorta; F32.9 Major depressive disorder, single episode, unspecified; K44.9 Diaphragmatic hernia without obstruction or gangrene; K57.90 Diverticulosis of intestine, part unspecified, without perforation or abscess without bleeding; K74.60 Unspecified cirrhosis of liver; E87.8 Other disorders of electrolyte and fluid balance, not elsewhere classified; D72.829 Elevated white blood cell count, unspecified; Z79.02 Long term (current) use of antithrombotics/antiplatelets; Z79.899 Other long term (current) drug therapy; Z79.82 Long term (current) use of aspirin; Z90.79 Acquired absence of other genital organ(s); Z88.0 Allergy status to penicillin; Z85.46 Personal history of malignant neoplasm of prostate
CPT/HCPCS: 36415; 70450; 71045; 82747; 83550; 83605; 83690; 83735; 84100; 84300; 84443; 84484; 85014; 85025; 87040; 87077; 93005; A4606; A4663; G0378; G0480; J1650; J2405; J7040